=== PATIENT | male | born 1985 | race Caucasian/White ===

== ENCOUNTER → 2021-06-09 | Outpatient (REF) ==
--- NOTE | 2021-06-09 11:34 | Diagnostic Imaging Report ---
INDICATION: MEDICAL SCREENING COMPARISON: None FINDINGS: Single frontal view of the chest demonstrates normal heart size and pulmonary vascularity. The lungs are well aerated and clear. No large pleural effusion or pneumothorax is seen. The visualized osseous structures show no acute abnormalities. IMPRESSION: 1. No acute cardiopulmonary process. Dictated by: Dictated on workstation # [id number]
== END ==
LOC: OCC 10:52
PROVIDERS: ATTEND Family Medicine
DX: Z02.89 Encounter for other administrative examinations (principal)
CPT/HCPCS: 71045